=== PATIENT | female | born 1930 | race Caucasian/White ===

== ENCOUNTER 2018-09-07 17:30 | Observation (INO) | payer MEDICARE, OTHER ==
[~2018-09-07] VITALS: Ht 177.8 cm; Wt 85.4 kg
[~2018-09-07 17:30] MED LIST: ACET325 PO; ALPR.25 PO; AMOCLA875 PO; ASPI81CH PO; ASPI81EC PO; BISA10S PR; CALCA500CH PO; CALCAVITD PO; CARV6.25 PO; CODACE30 PO; CODE30 PO; CODEINE-GUAIFE120 ML PO; CYCL10 PO; DIPH50 PO; FIBE4P PO; FOLI1 PO; FURO20 PO; LEVFLO500 PO; LISHYD2012 PO; LISI20 PO; LISI5 PO; Lipitor20 MG PO; MULT50L PO; MULVITA PO; MULVITMIND PO; NITR.6SL SL; OMEP20ER PO; OXYC5 PO; POLY17UD PO; POTCHL20ER PO; SENN187 PO; SIMV10 PO
[2018-09-07] MEDS ORDERED: CARV6.25 PO (17:58)
[2018-09-07] MEDS ORDERED: LISI20 PO (17:59)
[2018-09-07] MEDS ORDERED: TYLECOD3 PO (17:59)
[2018-09-07] MEDS ORDERED: NITR.6SL SL (18:00)
[2018-09-07] MEDS ORDERED: FLUAD (18:00)
[2018-09-07 18:07] LABS: BASOPHILS ABSOLUTE AUTO 0.03 K/mm3 (0.00-0.23); BASOPHILS PERCENT AUTO 1 % (0-2); EOSINOPHILS ABSOLUTE AUTO 0.13 K/mm3 (0.00-0.68); EOSINOPHILS PERCENT AUTO 2 % (0-6); Hemoglobin 11.8 g/dL (11.5-16.0); IMMATURE GRAN PERCENT AUTO 0 % (0-1); LYMPHOCYTES PERCENT AUTO 25 % (21-46); MONOCYTES ABSOLUTE AUTO 0.56 K/mm3 (0.16-1.47); MONOCYTES PERCENT AUTO 10 % (4-13); Mean Corpuscular HGB 30.7 pg (26.0-34.0); Mean Corpuscular HGB Conc 32.8 g/dL (31.5-36.5); Mean Corpuscular Volume 94 fL (80-100); Mean Platelet Volume 9.1 fL (9.1-12.4); NEUTROPHILS ABSOLUTE AUTO 3.47 K/mm3 (1.96-9.15); NEUTROPHILS PERCENT AUTO 62 % (41-73); Platelet Count 227 K/mm3 (150-400); RDW Coefficient Variation 13.2 % (11.7-14.2); Red Blood Cell Count 3.84 M/mm3 (3.80-5.20); White Blood Cell Count 5.59 K/mm3 (4.00-11.30)
[2018-09-07 18:23] LABS: Albumin, Blood 3.2 g/dL (3.4-5.0); Albumin/Globulin Ratio 0.9 (0.8-1.8); Bilirubin, Total 0.5 mg/dL (0.1-1.0); Bun/Creatinine Ratio 25.4 (12.0-20.0); Calcium, Blood 10.3 mg/dL (8.5-10.1); Creatinine, Blood 0.98 mg/dL (0.40-1.00); Globulin, Blood 3.5 g/dL (2.2-4.0); Potassium, Blood 4.2 mmol/L (3.5-5.5); Total Protein, Blood 6.7 g/dL (6.4-8.2); Troponin I 0.022 ng/mL (0.000-0.040)
[2018-09-07] MEDS ORDERED: Glucosamine Ch1 EAC3 (18:34)
[2018-09-07] MEDS ORDERED: ASPI81CH PO (18:34)
[2018-09-07] MEDS ORDERED: MAGOXI400 PO (18:35)
[2018-09-07] MEDS ORDERED: UBID10 PO (18:35)
[2018-09-07] MEDS ORDERED: Calcium + Vita1 EACH PO (18:35)
[2018-09-07] MEDS ORDERED: LETR2.5 PO (18:35)
[2018-09-08] MEDS ORDERED: NITR.4SL SL (00:21)
[2018-09-08] MEDS ORDERED: TYLECOD3 PO (00:21)
[2018-09-08] MEDS ORDERED: GLUCOSAMINE CHONDROI PO (00:23)
[2018-09-08] MEDS ORDERED: MAGNESIUM PO (00:24)
[2018-09-08] MEDS ORDERED: THERA1 EACH PO (00:25)
[2018-09-08] MEDS ORDERED: CO Q-10 PO (00:25)
[2018-09-08] MEDS ORDERED: VICKS VAPOINHA1 EACH INH (00:34)
[2018-09-08] MEDS ORDERED: MELATONIN PO (00:36)
[2018-09-08] MEDS ORDERED: TUMS500 MG PO (00:37)
--- NOTE | 2018-09-08 06:03 | NUR ---
Rn summary: Patient is alert and oriented. She was admitted about 2215 via W/C to room 303. Pt denies any chest pain at admit or during the night. Patient has been unable to sleep at all this shift. She has been awake watching TV. Pt is up with SBA to BR due to stiffness and IV pole. Pt is steady. Pt was hypertensive in ED and at admit. This am BP was 144/72. Pt is hoping to be discharged today. Pt calzada live alone. Call light in reach.
[2018-09-08 07:22] LABS: Alanine Aminotransfer (ALT/SGP 15 U/L (12-78); Albumin, Blood 2.8 g/dL (3.4-5.0); Alk Phos 58 U/L (50-136); Anion Gap 7 mmol/L (6-16); Aspartate Aminotrans (AST/SGOT 11 U/L (12-37); Bilirubin, Total 0.5 mg/dL (0.1-1.0); Blood Urea Nitrogen 28 mg/dL (8-24); Bun/Creatinine Ratio 30.2 (12.0-20.0); CO2, Blood 26 mmol/L (21-32); Calcium, Blood 9.4 mg/dL (8.5-10.1); Chloride, Blood 110 mmol/L (98-108); Creatinine, Blood 0.93 mg/dL (0.40-1.00); Globulin, Blood 2.9 g/dL (2.2-4.0); Glomerular Filtration Rate >60 (60-); Glucose, Blood 121 mg/dL (70-99); Potassium, Blood 3.9 mmol/L (3.5-5.5); Sodium, Blood 143 mmol/L (136-145); Total Protein, Blood 5.7 g/dL (6.4-8.2)
[2018-09-08] MEDS ORDERED: Norvasc2.5 MG PO (11:58)
[2018-09-08] MEDS ORDERED: Klonopin0.5 MG PO (11:59)
--- NOTE | 2018-09-08 13:47 | NUR ---
DISCHARGE SUMMARY PT DISCHARGED HOME WITH DAUGHTER PRESENT. PT LEFT ROOM VIA WHEELCHAIR WITH SENIOR VICE PRESIDENT & GENERAL COUNSEL ESCORT AT 1325. IV DC'D AND TELE REMOVED BY CHARGE NURSE RONNIE CONRAD RN. DISCHARGE TEACHING COMPLETED, ALL QUESTIONS ANSWERED. PT EDUCATED ON NEW MEDICATIONS AND ANGINA. PT ALSO INSTRUCTED TO FILL PRESCRIPTIONS AND TO FOLLOW UP WITH PCP. PT AGREES AND UNDERSTANDS.
== END 2018-09-08 13:24 | disposition home or self-care (01) ==
LOC: ER 17:30 → MEDS 17:31 → ENPENDDIS 09-08 13:05 → MEDS 09-08 13:24
PROVIDERS: Emergency Medicine; Nurse Practitioner Acute Care; ADMIT Internal Medicine
DX: R07.89 Other chest pain (principal); I16.0 Hypertensive urgency; I25.10 Atherosclerotic heart disease of native coronary artery without angina pectoris; E83.52 Hypercalcemia; I10 Essential (primary) hypertension; E78.00 Pure hypercholesterolemia, unspecified; F41.1 Generalized anxiety disorder; M19.90 Unspecified osteoarthritis, unspecified site; Z79.899 Other long term (current) drug therapy; Z79.82 Long term (current) use of aspirin; Z88.2 Allergy status to sulfonamides; Z88.1 Allergy status to other antibiotic agents; Z91.048 Other nonmedicinal substance allergy status; Z85.3 Personal history of malignant neoplasm of breast
CPT/HCPCS: 36415; 71046; 80053; 84484; 85025; 93005; 93010; 96361; 96372; 96374; 96375; 99285-25; G0378; J0360; J1650; J1885; J7030

== ENCOUNTER 2019-03-12 15:26 | Observation (INO) | payer MEDICARE, OTHER ==
[~2019-03-12] VITALS: Ht 162.6 cm; Wt 85.4 kg
[~2019-03-12 15:26] MED LIST changes: +Aspir 8181 MG PO; +CO Q-10 PO; +Calcium + Vita1 EACH PO; +FLUAD; +GLUCOSAMINE CHONDROI PO; +Glucosamine Ch1 EAC3; +Klonopin0.5 MG PO; +LETR2.5 PO; +MAGNESIUM PO; +MAGOXI400 PO; +MELATONIN PO; +NITR.4SL SL; +Norvasc2.5 MG PO; +THERA1 EACH PO; +TUMS500 MG PO; +TYLECOD3 PO; +UBID10 PO; +VICKS VAPOINHA1 EACH INH
[2019-03-12 16:41] LABS: BASOPHILS ABSOLUTE AUTO 0.03 K/mm3 (0.00-0.23); BASOPHILS PERCENT AUTO 1 % (0-2); EOSINOPHILS ABSOLUTE AUTO 0.13 K/mm3 (0.00-0.68); EOSINOPHILS PERCENT AUTO 2 % (0-6); Hematocrit 36.6 % (33.0-51.0); Hemoglobin 12.3 g/dL (11.5-16.0); IMMATURE GRAN ABSOLUTE AUTO 0.01 K/mm3 (0.00-0.10); IMMATURE GRAN PERCENT AUTO 0 % (0-1); LYMPHOCYTES ABSOLUTE AUTO 1.48 K/mm3 (0.84-5.20); LYMPHOCYTES PERCENT AUTO 24 % (21-46); MONOCYTES ABSOLUTE AUTO 0.44 K/mm3 (0.16-1.47); MONOCYTES PERCENT AUTO 7 % (4-13); Mean Corpuscular HGB 31.3 pg (26.0-34.0); Mean Corpuscular HGB Conc 33.6 g/dL (31.5-36.5); Mean Corpuscular Volume 93 fL (80-100); NEUTROPHILS ABSOLUTE AUTO 4.09 K/mm3 (1.96-9.15); NEUTROPHILS PERCENT AUTO 66 % (41-73); RDW Coefficient Variation 13.2 % (11.7-14.2); RDW Standard Deviation 45.1 fL (35.1-46.3); Red Blood Cell Count 3.93 M/mm3 (3.80-5.20); White Blood Cell Count 6.18 K/mm3 (4.00-11.30)
[2019-03-12 16:52] LABS: Alanine Aminotransfer (ALT/SGP 21 U/L (12-78); Albumin, Blood 3.6 g/dL (3.4-5.0); Albumin/Globulin Ratio 1.2 (0.8-1.8); Alk Phos 55 U/L (50-136); Anion Gap 6 mmol/L (6-16); Aspartate Aminotrans (AST/SGOT 14 U/L (12-37); Bilirubin, Total 0.6 mg/dL (0.1-1.0); Blood Urea Nitrogen 27 mg/dL (8-24); Bun/Creatinine Ratio 31.8 (12.0-20.0); CO2, Blood 24 mmol/L (21-32); Calcium, Blood 9.4 mg/dL (8.5-10.1); Chloride, Blood 108 mmol/L (98-108); Creatinine, Blood 0.85 mg/dL (0.40-1.00); Glomerular Filtration Rate >60 (60-); Glucose, Blood 152 mg/dL (70-99); Sodium, Blood 138 mmol/L (136-145); Total Protein, Blood 6.6 g/dL (6.4-8.2); Troponin I <0.015 ng/mL (0.000-0.040)
[2019-03-12 17:17] LABS: Mean Platelet Volume 9.7 fL (9.1-12.4); Platelet Count 202 K/mm3 (150-400)
[2019-03-12] MEDS ORDERED: CARV3.125 PO (19:30)
[2019-03-12 21:50] LABS: CPK Creatine Kinase 54 U/L (26-193); Creatine Kinase MB 1.4 ng/mL (0.0-3.6); Creatine Kinase MB Index 2.6 (0.0-4.0); Magnesium, Blood 1.8 mg/dL (1.6-2.4); Troponin I <0.015 ng/mL (0.000-0.040)
[2019-03-12] MEDS ORDERED: [UNRECOGNIZED DRUG - OTHER] (22:18)
[2019-03-12 22:24] LABS: Source, Urine Voided
[2019-03-12 22:27] LABS: Bilirubin, Urine Neg (Neg); Blood, Urine Neg (Neg); Glucose Qualitative, Urine Neg (Neg); Ketones, Urine Neg (Neg); Leukocyte Esterase, Urine Neg (Neg); Nitrite, Urine Neg (Neg); Protein, Urine Neg (Neg); Urobilinogen, Urine NORM (Normal); pH, Urine 6.5 (5.0-8.0)
[2019-03-12 22:30] LABS: Appearance, Urine Clear (Clear); Color, Urine Yellow (P-Yellow)
--- NOTE | 2019-03-13 00:37 | NUR ---
03/13/19 4550 RECEIVED FROM ER VIA [employer]. ORIENTED TO ROOM, CALL SYSTEM AND PLAN OF CARE ROUTINE. DENIES ANY DISCOMFORT OR S/S AT THIS TIME.
[2019-03-13 02:13] LABS: BASOPHILS ABSOLUTE AUTO 0.02 K/mm3 (0.00-0.23); BASOPHILS PERCENT AUTO 0 % (0-2); EOSINOPHILS ABSOLUTE AUTO 0.15 K/mm3 (0.00-0.68); EOSINOPHILS PERCENT AUTO 3 % (0-6); Hemoglobin 11.4 g/dL (11.5-16.0); IMMATURE GRAN ABSOLUTE AUTO 0.01 K/mm3 (0.00-0.10); IMMATURE GRAN PERCENT AUTO 0 % (0-1); LYMPHOCYTES ABSOLUTE AUTO 1.83 K/mm3 (0.84-5.20); LYMPHOCYTES PERCENT AUTO 37 % (21-46); MONOCYTES ABSOLUTE AUTO 0.45 K/mm3 (0.16-1.47); MONOCYTES PERCENT AUTO 9 % (4-13); Mean Corpuscular HGB Conc 33.5 g/dL (31.5-36.5); Mean Corpuscular Volume 92 fL (80-100); Mean Platelet Volume 9.2 fL (9.1-12.4); NEUTROPHILS ABSOLUTE AUTO 2.45 K/mm3 (1.96-9.15); NEUTROPHILS PERCENT AUTO 50 % (41-73); Platelet Count 171 K/mm3 (150-400); RDW Coefficient Variation 13.2 % (11.7-14.2); RDW Standard Deviation 44.6 fL (35.1-46.3); Red Blood Cell Count 3.68 M/mm3 (3.80-5.20); White Blood Cell Count 4.91 K/mm3 (4.00-11.30)
[2019-03-13 02:33] LABS: Anion Gap 6 mmol/L (6-16); Blood Urea Nitrogen 24 mg/dL (8-24); Bun/Creatinine Ratio 29.2 (12.0-20.0); CO2, Blood 25 mmol/L (21-32); CPK Creatine Kinase 49 U/L (26-193); Calcium, Blood 9.1 mg/dL (8.5-10.1); Chloride, Blood 111 mmol/L (98-108); Creatine Kinase MB 1.3 ng/mL (0.0-3.6); Creatine Kinase MB Index 2.7 (0.0-4.0); Creatinine, Blood 0.82 mg/dL (0.40-1.00); Glomerular Filtration Rate >60 (60-); Glucose, Blood 100 mg/dL (70-99); Magnesium, Blood 1.8 mg/dL (1.6-2.4); Potassium, Blood 3.9 mmol/L (3.5-5.5); Sodium, Blood 142 mmol/L (136-145); Troponin I <0.015 ng/mL (0.000-0.040)
--- NOTE | 2019-03-13 05:53 | NUR ---
03/13/19 0550 AWAKE AND STATES SHE DID NOT SLEEP. STATES SHE COULD NOT GET COMFORTABLE IN THIS BED AND ALSO HAS A SLIGHT SORE THROAT. HOT TEA GIVEN. DENIES ANY CHEST DISCOMFORT OR OTHER SYMPTOMS. VITALS AND HEART MONITOR STABLE.
[2019-03-13] MEDS ORDERED: TRAZ50 PO (13:01)
[2019-03-13] MEDS ORDERED: ACETAMINOP500 MG/15 (13:03)
[2019-03-13] MEDS ORDERED: BISA10S PR (13:10)
[2019-03-13] MEDS ORDERED: Zofran4 MG PO (13:11)
[2019-03-13] MEDS ORDERED: PANT20 PO (13:12)
--- NOTE | 2019-03-13 14:13 | NUR ---
Echocardiogram completed.
--- NOTE | 2019-03-13 15:26 | NUR ---
DISCHARGE NOTE PT DISCHARGED VIA W/C POV WITH GRANDSON TO HOME. PT AND FAMILY VERBALIZED UNDERSTANDING OF DISCHARGE INSTRUCTIONS AND IMPORTANCE OF KEEPING FOLLOW UP APPTS. MEDICATIONS FAXED TO [facility]. ALL VALUABLES AND BELONGINGS SENT HOME WITH PT AT TIME OF DISCHARGE.
== END 2019-03-13 15:25 | disposition home or self-care (01) ==
LOC: ER 15:26 → MEDS 15:27
PROVIDERS: Physician Assistant; ADMIT Family Medicine
DX: R07.9 Chest pain, unspecified (principal); I25.10 Atherosclerotic heart disease of native coronary artery without angina pectoris; I44.7 Left bundle-branch block, unspecified; I70.8 Atherosclerosis of other arteries; I10 Essential (primary) hypertension; R73.03 Prediabetes; G47.00 Insomnia, unspecified; Z88.1 Allergy status to other antibiotic agents; Z95.1 Presence of aortocoronary bypass graft; Z88.8 Allergy status to other drugs, medicaments and biological substances; Z88.2 Allergy status to sulfonamides; Z79.82 Long term (current) use of aspirin; Z79.899 Other long term (current) drug therapy
CPT/HCPCS: 36415; 71046; 80048; 80053; 81003; 82550; 82553; 83735; 83880; 84484; 85025; 93005; 93010; 93306; 99285-25; G0378; J1650; J7030